=== PATIENT | female | born 1930 | race Caucasian/White ===

== ENCOUNTER 2016-08-26 11:11 | Inpatient (IN) | payer MEDICARE, OTHER ==
[~2016-08-26] VITALS: Ht 149.9 cm; Wt 70.5 kg
[2016-08-26] MEDS ORDERED: SODIUM CHLORIDE 0.9% 1,000 ML ONE (13:00)
[2016-08-26] MEDS ORDERED: PHENYLEPHRINE 10 MG/ML VIAL IV ONE (14:13)
[2016-08-26] MEDS ORDERED: PROPOFOL 50ML VIAL IV ONE (14:13)
[2016-08-26] MEDS ORDERED: ONDANSETRON 4 MG VIAL ONE (14:20)
[2016-08-26] MEDS ORDERED: CEFTRIAXONE 1 GM VIAL ONE (14:35)
[2016-08-26] MEDS ORDERED: SODIUM CHLORIDE 0.9% 100 ML IV ONE (14:36)
[2016-08-26] MEDS ORDERED: SODIUM CHLORIDE 0.9% 1,000 ML IV SCH (19:45)
[2016-08-26] MEDS ORDERED: BISACODYL 10 MG SUPP RECTAL PRN (20:30)
[2016-08-26] MEDS ORDERED: SALINE FLUSH 10 ML FLUSH PRN (20:30)
[2016-08-26] MEDS ORDERED: MAG HYDROX 30 ML UDC PO PRN (20:30)
[2016-08-26] MEDS ORDERED: GUAIFEN/DM 10 ML UDC PO PRN (20:30)
[2016-08-26] MEDS ORDERED: BISACODYL EC 5 MG TAB PO PRN (20:30)
[2016-08-26] MEDS ORDERED: ONDANSETRON INJ 8 MG in SODIUM CHLORIDE 0.9% 50 ML IV PRN (20:30)
[2016-08-26] MEDS: DUONEB INH SCH ×2 (20:30→23:38)
[2016-08-26] MEDS ORDERED: ALU/MAG/SIM 30 ML UDC PO PRN (20:30)
[2016-08-26 21:21] VITALS: RESP 20; TEMP 98.3
[2016-08-26] MEDS: Atorvastatin 20 MG TAB PO SCH (21:59)
[2016-08-26] MEDS: amLODIPine 10 MG TAB PO SCH (22:00)
[2016-08-26] MEDS: ASPIRIN 81 MG CHEW TAB PO SCH (22:00)
[2016-08-26] MEDS: SALINE FLUSH 10 ML FLUSH SCH (22:00)
[2016-08-26] MEDS: PANTOPRAZOLE 40 MG VIAL IV SCH (22:01)
[2016-08-26] MEDS: AZITHROMYCIN 500 MG in SODIUM CHLORIDE 0.9% 250 ML IV SCH (22:01)
[2016-08-26] MEDS: SODIUM CHLORIDE 0.9% 1,000 ML IV SCH (22:01)
[2016-08-26] MEDS: ENOXAPARIN 30 MG/0.3 ML SYR SUBQ SCH (22:03)
[2016-08-26] MEDS ORDERED: MORPHINE 2 MG/ML SYR IV PRN (22:05)
[2016-08-26 22:39] VITALS: Ht 149.9 cm; Wt 70.5 kg
[2016-08-26 22:40] VITALS: BP_SYST 110
[2016-08-26 23:43] VITALS: RESP 16
[2016-08-27] VITALS (10 sets, daily range): BP systolic 88–112; RESP 16–20; TEMP 97.2–98.5
[2016-08-27] MEDS: DUONEB INH SCH ×6 (03:00→22:42)
[2016-08-27] MEDS: SODIUM CHLORIDE 0.9% FLUSH BAG 500 ML IV SCH (05:33)
[2016-08-27] MEDS: CEFTRIAXONE 1 GM in SODIUM CHLORIDE 0.9% 50 ML IV SCH (08:54)
[2016-08-27] MEDS: ENOXAPARIN 30 MG/0.3 ML SYR SUBQ SCH (08:54)
[2016-08-27] MEDS: SALINE FLUSH 10 ML FLUSH SCH ×2 (08:54→20:00)
[2016-08-27] MEDS: ASPIRIN 81 MG CHEW TAB PO SCH (08:54)
[2016-08-27] MEDS: amLODIPine 10 MG TAB PO SCH (08:54)
[2016-08-27] MEDS: AZITHROMYCIN 500 MG in SODIUM CHLORIDE 0.9% 250 ML IV SCH (11:24)
[2016-08-27] MEDS ORDERED: LIDOCAINE 1% MDV 20 ML ONE (11:58)
[2016-08-27] MEDS ORDERED: SODIUM CHLORIDE 0.9% 1,000 ML ONE (12:08)
[2016-08-27] MEDS: PANTOPRAZOLE 40 MG VIAL IV SCH (12:19)
[2016-08-27] MEDS: SODIUM CHLORIDE 0.9% 1,000 ML IV SCH (14:51)
[2016-08-27] MEDS: Atorvastatin 20 MG TAB PO SCH (20:21)
[2016-08-28] VITALS (19 sets, daily range): BP systolic 84–119; RESP 16–20; TEMP 97.3–99
[2016-08-28] MEDS: DUONEB INH SCH ×6 (03:32→23:10)
[2016-08-28] MEDS: SODIUM CHLORIDE 0.9% FLUSH BAG 500 ML IV SCH (03:35)
[2016-08-28] MEDS: SALINE FLUSH 10 ML FLUSH SCH ×2 (08:00→20:00)
[2016-08-28] MEDS: PANTOPRAZOLE 40 MG VIAL IV SCH (08:56)
[2016-08-28] MEDS: CEFTRIAXONE 1 GM in SODIUM CHLORIDE 0.9% 50 ML IV SCH (08:56)
[2016-08-28] MEDS: ENOXAPARIN 30 MG/0.3 ML SYR SUBQ SCH (08:57)
[2016-08-28] MEDS: amLODIPine 10 MG TAB PO SCH (08:57)
[2016-08-28] MEDS: ASPIRIN 81 MG CHEW TAB PO SCH (08:57)
[2016-08-28] MEDS: AZITHROMYCIN 500 MG in SODIUM CHLORIDE 0.9% 250 ML IV SCH (09:55)
[2016-08-28] MEDS ORDERED: LIDOCAINE 1% BUFFERED 1 ML SYR INTRADERM PRN (10:45)
[2016-08-28] MEDS ORDERED: LACT RINGERS 1,000 ML IV SCH (10:45)
[2016-08-28] MEDS ORDERED: MIDAZOLAM 2 MG/2 ML INJ IV ONE (10:45)
[2016-08-28] MEDS ORDERED: MEPERIDINE 25 MG/ML IV PRN (11:10)
[2016-08-28] MEDS ORDERED: MORPHINE 2 MG/ML SYR IV PRN (11:10)
[2016-08-28] MEDS ORDERED: DILAUDID 1 MG/ML AMP IV PRN (11:10)
[2016-08-28] MEDS ORDERED: OXYCODONE 5 MG TAB PO PRN (11:10)
[2016-08-28] MEDS ORDERED: ONDANSETRON 4 MG VIAL IV PRN (11:10)
[2016-08-28] MEDS ORDERED: MORPHINE 4 MG/ML SYR IV PRN (11:10)
[2016-08-28] MEDS: SODIUM CHLORIDE 0.9% 1,000 ML IV SCH (16:38)
[2016-08-28] MEDS: Atorvastatin 20 MG TAB PO SCH (21:05)
[2016-08-28] MEDS ORDERED: MIDAZOLAM 2 MG/2 ML INJ ONE (22:03)
[2016-08-29] VITALS (11 sets, daily range): BP systolic 110–124; RESP 16–20; TEMP 97.3–98.6
[2016-08-29] MEDS: DUONEB INH SCH ×6 (02:45→23:17)
[2016-08-29] MEDS: SODIUM CHLORIDE 0.9% FLUSH BAG 500 ML IV SCH (03:35)
[2016-08-29] MEDS: PANTOPRAZOLE 40 MG TAB PO SCH (06:43)
[2016-08-29] MEDS: SODIUM CHLORIDE 0.9% 1,000 ML IV SCH (06:43)
[2016-08-29] MEDS: SALINE FLUSH 10 ML FLUSH SCH ×2 (08:00→20:00)
[2016-08-29] MEDS: PANTOPRAZOLE 40 MG VIAL IV SCH (08:33)
[2016-08-29] MEDS: ASPIRIN 81 MG CHEW TAB PO SCH (08:33)
[2016-08-29] MEDS: CEFTRIAXONE 1 GM in SODIUM CHLORIDE 0.9% 50 ML IV SCH (08:33)
[2016-08-29] MEDS: ENOXAPARIN 30 MG/0.3 ML SYR SUBQ SCH (08:34)
[2016-08-29] MEDS: amLODIPine 10 MG TAB PO SCH (10:16)
[2016-08-29] MEDS: AZITHROMYCIN 500 MG in SODIUM CHLORIDE 0.9% 250 ML IV SCH (10:27)
[2016-08-29] MEDS: Atorvastatin 20 MG TAB PO SCH (21:16)
[2016-08-30] VITALS (10 sets, daily range): BP systolic 118–126; RESP 18–20; TEMP 97.4–98.3
[2016-08-30] MEDS: DUONEB INH SCH ×6 (02:43→22:58)
[2016-08-30] MEDS: SODIUM CHLORIDE 0.9% 1,000 ML IV SCH (03:26)
[2016-08-30] MEDS: SODIUM CHLORIDE 0.9% FLUSH BAG 500 ML IV SCH (06:00)
[2016-08-30] MEDS: SALINE FLUSH 10 ML FLUSH SCH ×2 (08:00→20:12)
[2016-08-30] MEDS: amLODIPine 10 MG TAB PO SCH (08:22)
[2016-08-30] MEDS: CEFTRIAXONE 1 GM in SODIUM CHLORIDE 0.9% 50 ML IV SCH (08:25)
[2016-08-30] MEDS: PANTOPRAZOLE 40 MG TAB PO SCH (08:25)
[2016-08-30] MEDS ORDERED: IRON SUCROSE COMPLEX 400 MG in SODIUM CHLORIDE 0.9% 250 ML IV SCH (09:00)
[2016-08-30] MEDS: CYANOCOBALAMIN 1000 MCG/ML VIAL IM SCH (15:11)
[2016-08-30] MEDS: Atorvastatin 20 MG TAB PO SCH (20:12)
[2016-08-31] VITALS (8 sets, daily range): BP systolic 111–134; RESP 18–20; TEMP 98.1–98.5
[2016-08-31] MEDS: DUONEB INH SCH ×6 (02:55→22:48)
[2016-08-31] MEDS: SODIUM CHLORIDE 0.9% FLUSH BAG 500 ML IV SCH (05:20)
[2016-08-31] MEDS: PANTOPRAZOLE 40 MG TAB PO SCH (06:39)
[2016-08-31] MEDS: CYANOCOBALAMIN 1000 MCG/ML VIAL IM SCH (08:43)
[2016-08-31] MEDS: SALINE FLUSH 10 ML FLUSH SCH ×2 (08:43→20:36)
[2016-08-31] MEDS: amLODIPine 10 MG TAB PO SCH (08:43)
[2016-08-31] MEDS: CEFTRIAXONE 1 GM in SODIUM CHLORIDE 0.9% 50 ML IV SCH (08:43)
[2016-08-31] MEDS: Atorvastatin 20 MG TAB PO SCH (20:36)
[2016-09-01] VITALS (7 sets, daily range): BP systolic 118–147; RESP 18–22; TEMP 97.4–98.9
[2016-09-01] MEDS: DUONEB INH SCH ×6 (02:45→22:37)
[2016-09-01] MEDS: SODIUM CHLORIDE 0.9% FLUSH BAG 500 ML IV SCH (06:25)
[2016-09-01] MEDS: PANTOPRAZOLE 40 MG TAB PO SCH (06:25)
[2016-09-01] MEDS: amLODIPine 10 MG TAB PO SCH (08:21)
[2016-09-01] MEDS: CEFTRIAXONE 1 GM in SODIUM CHLORIDE 0.9% 50 ML IV SCH (08:22)
[2016-09-01] MEDS: CYANOCOBALAMIN 1000 MCG/ML VIAL IM SCH (08:22)
[2016-09-01] MEDS: SALINE FLUSH 10 ML FLUSH SCH ×2 (08:22→19:54)
[2016-09-01] MEDS ORDERED: ONDANSETRON 4 MG VIAL ONE (10:12)
[2016-09-01] MEDS ORDERED: DILAUDID 1 MG/ML AMP ONE (10:12)
[2016-09-01] MEDS ORDERED: DILAUDID 1 MG/ML AMP IV ONE (11:55)
[2016-09-01] MEDS ORDERED: ONDANSETRON 4 MG VIAL IV PUSH ONE (11:55)
[2016-09-01] MEDS: Atorvastatin 20 MG TAB PO SCH (20:00)
[2016-09-02] MEDS: DUONEB INH SCH ×6 (02:39→23:04)
[2016-09-02 03:05] VITALS: BP_SYST 120; RESP 20; TEMP 98.6
[2016-09-02] MEDS: SODIUM CHLORIDE 0.9% FLUSH BAG 500 ML IV SCH (05:10)
[2016-09-02] MEDS: PANTOPRAZOLE 40 MG TAB PO SCH (06:07)
[2016-09-02] MEDS ORDERED: MISSING DOSE XX ONE (06:35)
[2016-09-02 07:26] VITALS: BP_SYST 123; RESP 18; TEMP 99.5
[2016-09-02] MEDS: CEFTRIAXONE 1 GM in SODIUM CHLORIDE 0.9% 50 ML IV SCH (08:14)
[2016-09-02] MEDS: amLODIPine 10 MG TAB PO SCH (08:15)
[2016-09-02] MEDS: SALINE FLUSH 10 ML FLUSH SCH ×2 (08:15→20:15)
[2016-09-02] MEDS: CYANOCOBALAMIN 1000 MCG/ML VIAL IM SCH (08:15)
[2016-09-02 11:21] VITALS: BP_SYST 108; RESP 22; TEMP 98.4
[2016-09-02 15:30] VITALS: BP_SYST 123; RESP 16; TEMP 98.3
[2016-09-02 19:53] VITALS: BP_SYST 125; RESP 18; TEMP 98.7
[2016-09-02] MEDS: Atorvastatin 20 MG TAB PO SCH (20:15)
[2016-09-03 00:26] VITALS: BP_SYST 126; RESP 18; TEMP 98.2
[2016-09-03] MEDS: DUONEB INH SCH ×4 (03:03→14:24)
[2016-09-03] MEDS: SODIUM CHLORIDE 0.9% FLUSH BAG 500 ML IV SCH (06:00)
[2016-09-03] MEDS: PANTOPRAZOLE 40 MG TAB PO SCH (06:34)
[2016-09-03 07:45] VITALS: BP_SYST 141; RESP 20; TEMP 98.3
[2016-09-03] MEDS: SALINE FLUSH 10 ML FLUSH SCH (09:47)
[2016-09-03] MEDS: amLODIPine 10 MG TAB PO SCH (09:53)
[2016-09-03] MEDS: CYANOCOBALAMIN 1000 MCG/ML VIAL IM SCH (09:54)
[2016-09-03] MEDS ORDERED: PNEUMO VAC 25 MCG/0.5 ML VL IM.VACC ONE (10:45)
[2016-09-03] MEDS ORDERED: ACETAMINOPHEN 325 MG TAB PO PRN (10:45)
[2016-09-03 12:06] VITALS: BP_SYST 135; RESP 20; TEMP 96.6
[2016-09-03] MEDS ORDERED: GADAVIST 7.5 ML SYR (HMH) IV ONE (15:07)
[2016-09-03 15:40] VITALS: BP_SYST 123; RESP 20; TEMP 97.9
[2016-09-03 16:31] VITALS: BP_SYST 123; RESP 20; TEMP 97.9
[2016-09-03] MEDS ORDERED: TUBERCULIN PPD 5 UNIT SYR ID.VACC ONE (21:00)
[2016-09-04] MEDS ORDERED: ENOXAPARIN 40 MG/0.4 ML SYR SUBQ SCH (09:00)
[2016-09-05] MEDS ORDERED: SKIN TEST: READ AND RECORD XX SCH (21:00)
[2016-09-10] MEDS ORDERED: TUBERCULIN PPD 5 UNIT SYR ID.VACC ONE (21:00)
== END 2016-09-03 18:36 | DRG 871 ==
LOC: ENRESERVDT → ENRESERVTM → ER 11:11 → ENPENDDIS 19:30 → DELPENDDIS 19:30 → EMR 19:30 → 3NT 21:26
PROVIDERS: ADMIT Internal Medicine; ATTEND Internal Medicine
PROC: 0T778DZ Dilation of Left Ureter with Intraluminal Device, Via Natural or Artificial Opening Endoscopic (ICD-10-PCS; principal; 2016-08-28 11:02)
PROC: BT1FZZZ Fluoroscopy of Left Kidney, Ureter and Bladder (ICD-10-PCS; 2016-08-28 11:02)
PROC: 0BB83ZX Excision of Left Upper Lobe Bronchus, Percutaneous Approach, Diagnostic (ICD-10-PCS; 2016-09-01)
DX: A41.9 Sepsis, unspecified organism (principal); J18.9 Pneumonia, unspecified organism; J96.01 Acute respiratory failure with hypoxia; N17.9 Acute kidney failure, unspecified; J90 Pleural effusion, not elsewhere classified; C79.9 Secondary malignant neoplasm of unspecified site; N13.30 Unspecified hydronephrosis; C34.92 Malignant neoplasm of unspecified part of left bronchus or lung; N39.0 Urinary tract infection, site not specified; J95.811 Postprocedural pneumothorax; E86.0 Dehydration; D50.0 Iron deficiency anemia secondary to blood loss (chronic); I10 Essential (primary) hypertension; E53.8 Deficiency of other specified B group vitamins; E27.9 Disorder of adrenal gland, unspecified; K52.9 Noninfective gastroenteritis and colitis, unspecified; E78.5 Hyperlipidemia, unspecified; Z87.891 Personal history of nicotine dependence; K21.9 Gastro-esophageal reflux disease without esophagitis; Z82.49 Family history of ischemic heart disease and other diseases of the circulatory system; Z79.82 Long term (current) use of aspirin; M47.812 Spondylosis without myelopathy or radiculopathy, cervical region
CPT/HCPCS: 32405; 70450; 70553; 71010; 71250; 72125; 74176; 74420; 77012; 80048; 80053; 81001; 82550; 82553; 82607; 82728; 82746; 82947; 83540; 83690; 83735; 84466; 84484; 85025; 85046; 85610; 85652; 86141; 87088; 88307; 88333; 88334; 88341; 88342; 93005; 94640; 94799; 96361; 96365; 96375; 99223; 99232; 99233; 99239